=== PATIENT | male | born 1995 | race Two or more races ===

== ENCOUNTER 2018-06-22 09:43 | Emergency (ER) | payer MEDICAID ==
[~2018-06-22] VITALS: Ht 170.2 cm; Wt 81.2 kg
[2018-06-22 09:51] VITALS: BP 122/77
--- NOTE | 2018-06-22 09:54 | NUR ---
patient presented to the ER c/o back pain x 2 weeks, on room air, breathing evenly and unlabored. Kept comfortable, will continue to monitor accordingly. Awaiting for MD for eval.
== END 2018-06-22 10:08 | disposition home or self-care (01) ==
LOC: ER 09:49
DX: M54.5 Low back pain (principal)